=== PATIENT | female | born 1965 | race Caucasian/White ===

== ENCOUNTER → 2017-11-24 | Outpatient (CLI) | payer OTHER ==
[2017-11-24 12:14] LABS: BASO # 0.1 10^3/uL (0.0-0.2); EOS # 0.1 10^3/uL (0.0-0.50); EOS % 1.4 % (0.0-3.0); HEMATOCRIT 41.2 % (36.0-47.0); HEMOGLOBIN 13.4 g/dl (12.0-15.5); IMMATURE GRANULOCYTE % 0.3 % (0-3.0); LYMPH # 2.1 10^3/uL (1.5-4.5); LYMPH % 27.2 % (24.0-44.0); MEAN CORPUSCULAR HEMOGLOBIN 30.1 pg (27.0-33.0); MEAN CORPUSCULAR HGB CONC 32.5 g/dl (32.0-36.5); MEAN CORPUSCULAR VOLUME 92.6 fl (80.0-96.0); MONO # 0.4 10^3/uL (0.0-0.8); MONO % 5.5 % (0.0-5.0); NEUTROPHILS % 64.6 % (36.0-66.0); PLATELET COUNT, AUTOMATED 210 10^3/uL (150-450); RED BLOOD COUNT 4.45 10^6/uL (4.00-5.40); RED CELL DISTRIBUTION WIDTH 14.7 % (11.5-14.5); WHITE BLOOD COUNT 7.8 10^3/uL (4.0-10.0)
[2017-11-24 12:29] LABS: ALBUMIN 3.6 GM/DL (3.2-5.2); ALBUMIN/GLOBULIN RATIO 1.24 (1.00-1.93); ALKALINE PHOSPHATASE 114 U/L (45-117); ALT/SGPT 43 U/L (12-78); ANION GAP 5 MEQ/L (8-16); AST/SGOT 19 U/L (7-37); BILIRUBIN,TOTAL 0.8 MG/DL (0.2-1.0); BLOOD UREA NITROGEN 17 MG/DL (7-18); CALCIUM LEVEL 8.9 MG/DL (8.5-10.1); CARBON DIOXIDE LEVEL 29 MEQ/L (21-32); CHLORIDE LEVEL 108 MEQ/L (98-107); CHOLESTEROL LEVEL 152 MG/DL (<200); CREATININE FOR GFR 0.94 MG/DL (0.55-1.30); GLOMERULAR FILTRATION RATE > 60.0 (>51); GLUCOSE, FASTING 120 MG/DL (70-100); HDL CHOLESTEROL 51 MG/DL (>40); LDL CHOLESTEROL 63.8 MG/DL (<100); MAGNESIUM LEVEL 2.1 MG/DL (1.8-2.4); NON-HDL-C 101 MG/DL; POTASSIUM SERUM 4.2 MEQ/L (3.5-5.1); SODIUM LEVEL 142 MEQ/L (136-145); TOTAL PROTEIN 6.5 GM/DL (6.4-8.2); TRIGLYCERIDES LEVEL 186 MG/DL (<150)
[2017-11-24 13:26] LABS: MALB URINE SIEMENS 7.7 MG/L; MAU/CREAT RATIO 5.1 MCG/MG (0.0-30.0)
[2017-11-24 16:44] LABS: FOLATE > 24.0 NG/ML; VITAMIN B12 LEVEL 692 PG/ML
[2017-11-24 16:48] LABS: TOTAL 25(OH) VITAMIN D 28.9 NG/ML (30.0-100.0)
[2017-11-29 00:06] LABS: VITAMIN B1 LEVEL WHOLE BLOOD 163.2 nmol/L (66.5-200.0)
== END ==
LOC: M LAB 11:10
DX: E11.40 Type 2 diabetes mellitus with diabetic neuropathy, unspecified (principal)

== ENCOUNTER → 2017-12-19 | Outpatient (CLI) | payer OTHER | LOC: M RAD 09:57 | DX: M25.511 Pain in right shoulder (principal) ==

== ENCOUNTER → 2017-12-19 | Outpatient (CLI) | payer OTHER | LOC: M RAD 10:03 | DX: M50.322 Other cervical disc degeneration at C5-C6 level (principal); M25.511 Pain in right shoulder | CPT/HCPCS: 72141 ==

== ENCOUNTER → 2018-02-25 | Outpatient (CLI) | payer OTHER | LOC: M CARPUL 11:20 | DX: R60.9 Edema, unspecified (principal); I50.30 Unspecified diastolic (congestive) heart failure | CPT/HCPCS: 93306 ==

== ENCOUNTER 2018-03-19 07:03 | Inpatient (IN) | payer OTHER ==
[~2018-03-19 07:03] MED LIST: LIDOCAINE 1% MDV 20ML VIAL SQ
[2018-03-19] MEDS ORDERED: LIDOCAINE 1% MDV 20ML VIAL (07:04)
[2018-03-19] MEDS ORDERED: ROPIvacaine 0.5% 30 ML INJECTION (J2795 PER 1MG) (07:04)
[2018-03-19 07:55] LABS: BEDSIDE GLUCOSE 104 MG/DL (70-105)
[2018-03-19] MEDS: LR 1,000 ML IV ×3 (07:55→12:45)
[2018-03-19] MEDS ORDERED: MIDAZOLAM INJ 2 MG/2 ML VIAL (J2250) As Ordered (08:23)
[2018-03-19] MEDS ORDERED: fentaNYL 100 MCG/2 ML INJECTION (J3010) As Ordered (08:23)
[2018-03-19] MEDS: fentaNYL 100 MCG/2 ML INJECTION (J3010) IV ×2 (08:38→08:41)
[2018-03-19] MEDS: MIDAZOLAM INJ 2 MG/2 ML VIAL (J2250) IV ×2 (08:38→08:41)
[2018-03-19] MEDS: VANCOMYCIN HCL 1,000 MG, VIAL MATE ADAPTER 1 EACH in D5W 250 ML IV (08:50)
[2018-03-19] MEDS ORDERED: VANCOMYCIN 1000 MG/20 ML VIAL (J3370) As Ordered (08:52)
[2018-03-19] MEDS: FAMOTIDINE 20 MG TAB PO ×2 (09:00→20:02)
[2018-03-19] MEDS: buPROPion (WELLBUTRIN SR) 100 MG SR TAB PO ×2 (09:00→20:02)
[2018-03-19] MEDS ORDERED: LIDOCAINE 1% MDV 20ML VIAL As Ordered (09:07)
[2018-03-19] MEDS: EPINEPHrine 1MG/ML INJ 30ML MD-VIAL As Ordered (10:48)
[2018-03-19 12:39] LABS: BEDSIDE GLUCOSE 211 MG/DL (70-105)
[2018-03-19] MEDS ORDERED: PERCOCET 5MG/325MG TAB PO (12:45)
[2018-03-19] MEDS ORDERED: ONDANSETRON 4MG/2ML VIAL (J2405) IV (12:45)
[2018-03-19] MEDS ORDERED: METOCLOPRAMIDE INJ 10MG/2ML VIAL (J2765) IV (12:45)
[2018-03-19] MEDS ORDERED: fentaNYL 100 MCG/2 ML INJECTION (J3010) IV (12:45)
[2018-03-19] MEDS ORDERED: MORPHINE 4 MG/ML 1ML VIAL/SYRINGE (J2270) IV (13:00)
[2018-03-19 14:30] LABS: HEMATOCRIT 35.8 % (36.0-47.0); HEMOGLOBIN 11.4 g/dl (12.0-15.5); MEAN CORPUSCULAR HEMOGLOBIN 30.6 pg (27.0-33.0); MEAN CORPUSCULAR HGB CONC 31.8 g/dl (32.0-36.5); MEAN CORPUSCULAR VOLUME 96.2 fl (80.0-96.0); PLATELET COUNT, AUTOMATED 180 10^3/uL (150-450); RED BLOOD COUNT 3.72 10^6/uL (4.00-5.40); RED CELL DISTRIBUTION WIDTH 13.7 % (11.5-14.5); WHITE BLOOD COUNT 6.1 10^3/uL (4.0-10.0)
[2018-03-19] MEDS ORDERED: GLUCAGON FOR INJ 1 MG VIAL (J1610) SC (14:30)
[2018-03-19] MEDS ORDERED: GLUCOSE 4 GM CHEW TABLET PO (14:30)
[2018-03-19] MEDS ORDERED: DEXTROSE 50% 50 ML SYRINGE IV (14:30)
[2018-03-19 15:00] LABS: ALBUMIN 3.1 GM/DL (3.2-5.2); ALBUMIN/GLOBULIN RATIO 1.11 (1.00-1.93); ALKALINE PHOSPHATASE 84 U/L (45-117); ALT/SGPT 31 U/L (12-78); ANION GAP 9 MEQ/L (8-16); AST/SGOT 15 U/L (7-37); BILIRUBIN,TOTAL 0.3 MG/DL (0.2-1.0); BLOOD UREA NITROGEN 21 MG/DL (7-18); CALCIUM LEVEL 8.3 MG/DL (8.5-10.1); CARBON DIOXIDE LEVEL 27 MEQ/L (21-32); CHLORIDE LEVEL 108 MEQ/L (98-107); CREATININE FOR GFR 1.36 MG/DL (0.55-1.30); GLOMERULAR FILTRATION RATE 43.1 (>51); GLUCOSE, FASTING 211 MG/DL (70-100); POTASSIUM SERUM 4.1 MEQ/L (3.5-5.1); SODIUM LEVEL 144 MEQ/L (136-145); TOTAL PROTEIN 5.9 GM/DL (6.4-8.2)
[2018-03-19] MEDS: ATORVASTATIN 10 MG TAB PO (15:32)
[2018-03-19] MEDS: CYANOCOBALAMIN 500 MCG TAB PO (15:32)
[2018-03-19] MEDS: ACETAMINOPHEN 500 MG TAB PO ×2 (15:32→21:10)
[2018-03-19] MEDS: CALCITRIOL 0.25 MCG CAP (S0169) PO (15:32)
[2018-03-19] MEDS: ALLOPURINOL 100 MG TAB PO (15:32)
[2018-03-19 16:34] LABS: BEDSIDE GLUCOSE 211 MG/DL (70-105)
[2018-03-19 17:18] LABS: HEMATOCRIT 35.7 % (36.0-47.0); HEMOGLOBIN 11.5 g/dl (12.0-15.5); MEAN CORPUSCULAR HEMOGLOBIN 30.7 pg (27.0-33.0); MEAN CORPUSCULAR HGB CONC 32.2 g/dl (32.0-36.5); MEAN CORPUSCULAR VOLUME 95.5 fl (80.0-96.0); PLATELET COUNT, AUTOMATED 198 10^3/uL (150-450); RED BLOOD COUNT 3.74 10^6/uL (4.00-5.40); RED CELL DISTRIBUTION WIDTH 13.7 % (11.5-14.5); WHITE BLOOD COUNT 8.3 10^3/uL (4.0-10.0)
[2018-03-19 17:45] LABS: ANION GAP 11 MEQ/L (8-16); BLOOD UREA NITROGEN 20 MG/DL (7-18); CALCIUM LEVEL 8.1 MG/DL (8.5-10.1); CARBON DIOXIDE LEVEL 25 MEQ/L (21-32); CHLORIDE LEVEL 109 MEQ/L (98-107); CREATININE FOR GFR 1.25 MG/DL (0.55-1.30); GLOMERULAR FILTRATION RATE 47.5 (>51); GLUCOSE, FASTING 206 MG/DL (70-100); POTASSIUM SERUM 4.1 MEQ/L (3.5-5.1); SODIUM LEVEL 145 MEQ/L (136-145)
[2018-03-19] MEDS: HumaLOG INSULIN (NovoLOG) PER UNIT SC (17:55)
[2018-03-19] MEDS: oxyCODONE 5MG TAB PO ×2 (20:04→23:36)
[2018-03-19 21:11] LABS: BEDSIDE GLUCOSE 193 MG/DL (70-105)
[2018-03-20] MEDS: oxyCODONE 5MG TAB PO ×5 (03:01→22:02)
[2018-03-20] MEDS: ACETAMINOPHEN 500 MG TAB PO ×3 (05:30→22:03)
[2018-03-20 06:15] LABS: HEMATOCRIT 32.8 % (36.0-47.0); HEMOGLOBIN 10.5 g/dl (12.0-15.5); MEAN CORPUSCULAR HEMOGLOBIN 30.4 pg (27.0-33.0); MEAN CORPUSCULAR VOLUME 95.1 fl (80.0-96.0); PLATELET COUNT, AUTOMATED 190 10^3/uL (150-450); RED BLOOD COUNT 3.45 10^6/uL (4.00-5.40); RED CELL DISTRIBUTION WIDTH 13.8 % (11.5-14.5); WHITE BLOOD COUNT 8.5 10^3/uL (4.0-10.0)
[2018-03-20 06:42] LABS: ANION GAP 9 MEQ/L (8-16); BLOOD UREA NITROGEN 22 MG/DL (7-18); CALCIUM LEVEL 8.2 MG/DL (8.5-10.1); CARBON DIOXIDE LEVEL 26 MEQ/L (21-32); CHLORIDE LEVEL 108 MEQ/L (98-107); CREATININE FOR GFR 1.41 MG/DL (0.55-1.30); GLOMERULAR FILTRATION RATE 41.4 (>51); GLUCOSE, FASTING 175 MG/DL (70-100); POTASSIUM SERUM 4.2 MEQ/L (3.5-5.1); SODIUM LEVEL 143 MEQ/L (136-145)
[2018-03-20] MEDS: HumaLOG INSULIN (NovoLOG) PER UNIT SC ×3 (07:55→18:25)
[2018-03-20] MEDS: FAMOTIDINE 20 MG TAB PO ×2 (08:00→22:01)
[2018-03-20] MEDS: CALCITRIOL 0.25 MCG CAP (S0169) PO (08:00)
[2018-03-20] MEDS: buPROPion (WELLBUTRIN SR) 100 MG SR TAB PO ×2 (08:00→22:03)
[2018-03-20] MEDS: METOPROLOL SUCC (TopROL XL) 100MG *XL* TAB PO (08:04)
[2018-03-20] MEDS: CYANOCOBALAMIN 500 MCG TAB PO (08:05)
[2018-03-20] MEDS: ALLOPURINOL 100 MG TAB PO (08:05)
[2018-03-20] MEDS: ATORVASTATIN 10 MG TAB PO (08:05)
[2018-03-20] MEDS: MIRALAX *UNIT DOSE* 17GM PACKET PO (09:33)
[2018-03-20] MEDS: MOM 30ML SUSPENSION UDC PO (09:33)
[2018-03-20] MEDS: HEPARIN SOD (PORCINE) 5000 UNITS/ML VIAL SQ ×3 (09:38→22:00)
[2018-03-20 11:46] LABS: BEDSIDE GLUCOSE 188 MG/DL (70-105)
[2018-03-20 16:28] LABS: BEDSIDE GLUCOSE 172 MG/DL (70-105)
[2018-03-20 20:32] LABS: BEDSIDE GLUCOSE 172 MG/DL (70-105)
[2018-03-20] MEDS: MAGNESIUM OXIDE 400 MG TAB (MAG-OX) PO (22:03)
[2018-03-20] MEDS: POTASSIUM CHLORIDE 10 MEQ SR TABLET PO (22:03)
[2018-03-21] MEDS: oxyCODONE 5MG TAB PO ×5 (03:34→20:40)
[2018-03-21] MEDS: ACETAMINOPHEN 500 MG TAB PO ×3 (05:21→20:39)
[2018-03-21] MEDS: HEPARIN SOD (PORCINE) 5000 UNITS/ML VIAL SQ ×3 (05:22→21:47)
[2018-03-21 07:42] LABS: BEDSIDE GLUCOSE 164 MG/DL (70-105)
[2018-03-21] MEDS: HumaLOG INSULIN (NovoLOG) PER UNIT SC ×3 (08:11→16:35)
[2018-03-21] MEDS: CALCITRIOL 0.25 MCG CAP (S0169) PO (08:11)
[2018-03-21] MEDS: MAGNESIUM OXIDE 400 MG TAB (MAG-OX) PO (08:12)
[2018-03-21] MEDS: ALLOPURINOL 100 MG TAB PO (08:12)
[2018-03-21] MEDS: FUROSEMIDE 40 MG TAB PO (08:12)
[2018-03-21] MEDS: buPROPion (WELLBUTRIN SR) 100 MG SR TAB PO ×2 (08:12→20:40)
[2018-03-21] MEDS: MOM 30ML SUSPENSION UDC PO (08:13)
[2018-03-21] MEDS: CYANOCOBALAMIN 500 MCG TAB PO (08:13)
[2018-03-21] MEDS: ATORVASTATIN 10 MG TAB PO (08:13)
[2018-03-21] MEDS: POTASSIUM CHLORIDE 10 MEQ SR TABLET PO (08:13)
[2018-03-21] MEDS: FAMOTIDINE 20 MG TAB PO ×2 (08:13→20:39)
[2018-03-21] MEDS: MIRALAX *UNIT DOSE* 17GM PACKET PO (08:13)
[2018-03-21] MEDS: METOPROLOL SUCC (TopROL XL) 100MG *XL* TAB PO (08:36)
[2018-03-21] MEDS: METOPROLOL SUCC (TopROL XL) 50MG **XL** TAB PO (10:01)
[2018-03-21 11:26] LABS: BEDSIDE GLUCOSE 140 MG/DL (70-105)
[2018-03-21 16:24] LABS: BEDSIDE GLUCOSE 135 MG/DL (70-105)
[2018-03-21 20:29] LABS: BEDSIDE GLUCOSE 145 MG/DL (70-105)
[2018-03-22] MEDS: oxyCODONE 5MG TAB PO ×5 (00:39→21:05)
[2018-03-22] MEDS: HEPARIN SOD (PORCINE) 5000 UNITS/ML VIAL SQ ×3 (06:00→21:07)
[2018-03-22] MEDS: ACETAMINOPHEN 500 MG TAB PO ×3 (06:24→21:06)
[2018-03-22 07:11] LABS: BEDSIDE GLUCOSE 184 MG/DL (70-105)
[2018-03-22] MEDS: MOM 30ML SUSPENSION UDC PO (08:11)
[2018-03-22] MEDS: HumaLOG INSULIN (NovoLOG) PER UNIT SC ×3 (08:11→18:18)
[2018-03-22] MEDS: buPROPion (WELLBUTRIN SR) 100 MG SR TAB PO ×2 (08:11→21:04)
[2018-03-22] MEDS: MIRALAX *UNIT DOSE* 17GM PACKET PO (08:11)
[2018-03-22] MEDS: METOPROLOL SUCC (TopROL XL) 100MG *XL* TAB PO (08:12)
[2018-03-22] MEDS: CALCITRIOL 0.25 MCG CAP (S0169) PO (08:12)
[2018-03-22] MEDS: POTASSIUM CHLORIDE 10 MEQ SR TABLET PO (08:13)
[2018-03-22] MEDS: ATORVASTATIN 10 MG TAB PO (08:13)
[2018-03-22] MEDS: CYANOCOBALAMIN 500 MCG TAB PO (08:13)
[2018-03-22] MEDS: FAMOTIDINE 20 MG TAB PO ×2 (08:13→21:06)
[2018-03-22] MEDS: FUROSEMIDE 40 MG TAB PO (08:13)
[2018-03-22] MEDS: MAGNESIUM OXIDE 400 MG TAB (MAG-OX) PO (08:14)
[2018-03-22] MEDS: ALLOPURINOL 100 MG TAB PO (08:14)
[2018-03-22 12:07] LABS: BEDSIDE GLUCOSE 120 MG/DL (70-105)
[2018-03-22 16:58] LABS: BEDSIDE GLUCOSE 133 MG/DL (70-105)
[2018-03-22 21:19] LABS: BEDSIDE GLUCOSE 153 MG/DL (70-105)
[2018-03-23] MEDS: oxyCODONE 5MG TAB PO ×5 (00:50→20:22)
[2018-03-23] MEDS: HEPARIN SOD (PORCINE) 5000 UNITS/ML VIAL SQ ×3 (05:13→22:00)
[2018-03-23] MEDS: MAGNESIUM CITRATE 300 ML BTL PO ×2 (06:32→11:00)
[2018-03-23] MEDS: ACETAMINOPHEN 500 MG TAB PO ×3 (06:32→22:00)
[2018-03-23] MEDS: HumaLOG INSULIN (NovoLOG) PER UNIT SC ×3 (08:43→17:48)
[2018-03-23 08:59] LABS: BEDSIDE GLUCOSE 151 MG/DL (70-105)
[2018-03-23] MEDS: METOPROLOL SUCC (TopROL XL) 100MG *XL* TAB PO (09:00)
[2018-03-23] MEDS: ATORVASTATIN 10 MG TAB PO (09:53)
[2018-03-23] MEDS: POTASSIUM CHLORIDE 10 MEQ SR TABLET PO (09:53)
[2018-03-23] MEDS: CYANOCOBALAMIN 500 MCG TAB PO (09:54)
[2018-03-23] MEDS: FAMOTIDINE 20 MG TAB PO ×2 (09:54→20:22)
[2018-03-23] MEDS: ALLOPURINOL 100 MG TAB PO (09:54)
[2018-03-23] MEDS: buPROPion (WELLBUTRIN SR) 100 MG SR TAB PO ×2 (09:54→20:23)
[2018-03-23] MEDS: MAGNESIUM OXIDE 400 MG TAB (MAG-OX) PO (09:55)
[2018-03-23] MEDS: FUROSEMIDE 40 MG TAB PO (09:55)
[2018-03-23] MEDS: MIRALAX *UNIT DOSE* 17GM PACKET PO (09:55)
[2018-03-23] MEDS: MOM 30ML SUSPENSION UDC PO (09:55)
[2018-03-23] MEDS: CALCITRIOL 0.25 MCG CAP (S0169) PO (09:55)
[2018-03-23 11:20] LABS: BEDSIDE GLUCOSE 129 MG/DL (70-105)
[2018-03-23 17:24] LABS: BEDSIDE GLUCOSE 142 MG/DL (70-105)
[2018-03-23 19:49] LABS: BEDSIDE GLUCOSE 192 MG/DL (70-105)
[2018-03-24] MEDS: oxyCODONE 5MG TAB PO ×2 (03:59→08:13)
[2018-03-24] MEDS: ACETAMINOPHEN 500 MG TAB PO (05:32)
[2018-03-24] MEDS: HEPARIN SOD (PORCINE) 5000 UNITS/ML VIAL SQ (06:00)
[2018-03-24] MEDS: buPROPion (WELLBUTRIN SR) 100 MG SR TAB PO (08:13)
[2018-03-24] MEDS: FAMOTIDINE 20 MG TAB PO (08:13)
[2018-03-24] MEDS: CALCITRIOL 0.25 MCG CAP (S0169) PO (08:13)
[2018-03-24] MEDS: POTASSIUM CHLORIDE 10 MEQ SR TABLET PO (08:13)
[2018-03-24] MEDS: FUROSEMIDE 40 MG TAB PO (08:13)
[2018-03-24 08:14] LABS: BEDSIDE GLUCOSE 157 MG/DL (70-105)
[2018-03-24] MEDS: METOPROLOL SUCC (TopROL XL) 100MG *XL* TAB PO (08:14)
[2018-03-24] MEDS: ATORVASTATIN 10 MG TAB PO (08:14)
[2018-03-24] MEDS: CYANOCOBALAMIN 500 MCG TAB PO (08:14)
[2018-03-24] MEDS: ALLOPURINOL 100 MG TAB PO (08:14)
[2018-03-24] MEDS: MAGNESIUM OXIDE 400 MG TAB (MAG-OX) PO (08:14)
[2018-03-24] MEDS: HumaLOG INSULIN (NovoLOG) PER UNIT SC (08:20)
[2018-03-24] MEDS: MIRALAX *UNIT DOSE* 17GM PACKET PO (08:20)
[2018-03-24] MEDS: MOM 30ML SUSPENSION UDC PO (08:20)
== END 2018-03-24 10:15 | DRG 516 ==
LOC: M SDC 07:03 → M MS5PR 03-20 08:21
PROVIDERS: Orthopaedic Surgery
PROC: 0PB94ZZ Excision of Right Clavicle, Percutaneous Endoscopic Approach (ICD-10-PCS; principal; 2018-03-19 09:25)
PROC: 0XQ Anatomical Regions, Upper Extremities, Repair (ICD-10-PCS; 2018-03-19 09:25)
PROC: 0PN Upper Bones, Release (ICD-10-PCS; 2018-03-19 09:25)
DX: M75.111 Incomplete rotator cuff tear or rupture of right shoulder, not specified as traumatic (principal); Z68.42 Body mass index [BMI] 45.0-49.9, adult; M75.21 Bicipital tendinitis, right shoulder; M19.011 Primary osteoarthritis, right shoulder; M25.811 Other specified joint disorders, right shoulder; F32.9 Major depressive disorder, single episode, unspecified; E78.5 Hyperlipidemia, unspecified; G47.33 Obstructive sleep apnea (adult) (pediatric); E66.01 Morbid (severe) obesity due to excess calories; I15.0 Renovascular hypertension; D63.1 Anemia in chronic kidney disease; E11.22 Type 2 diabetes mellitus with diabetic chronic kidney disease; N18.3 Chronic kidney disease, stage 3 (moderate); M1A.30X0 Chronic gout due to renal impairment, unspecified site, without tophus (tophi); Z98.84 Bariatric surgery status; Z88.1 Allergy status to other antibiotic agents; Z88.5 Allergy status to narcotic agent; Z79.899 Other long term (current) drug therapy; Z79.4 Long term (current) use of insulin

== ENCOUNTER → 2018-04-27 | Outpatient (REF) | payer OTHER ==
[~2018-04-27] MED LIST changes: +ACET-683 PO; +ATOR1TAB19 PO; +BUPR1TAB56 PO; +FAMO1TAB11 PO; +FURO40TA2 PO; -LIDOCAINE 1% MDV 20ML VIAL SQ; +METO1TAB33 PO; +PERC5TAB12 PO; +POTA10CA32 PO; +ROXI1TAB2 PO; +TAB-TAB PO; +VITA50005 PO; +VITA500T3 PO
[2018-04-27 17:35] LABS: CALCIUM LEVEL 8.7 MG/DL (8.5-10.1); CREATININE FOR GFR 1.19 MG/DL (0.55-1.30); GLOMERULAR FILTRATION RATE 50.1 (>51); POTASSIUM SERUM 3.8 MEQ/L (3.5-5.1)
== END ==
LOC: M LAB REF 16:27
PROVIDERS: ATTEND Family Medicine
DX: E11.40 Type 2 diabetes mellitus with diabetic neuropathy, unspecified (principal); N28.9 Disorder of kidney and ureter, unspecified; I87.392 Chronic venous hypertension (idiopathic) with other complications of left lower extremity

== ENCOUNTER → 2018-11-01 | Outpatient (CLI) | payer OTHER ==
[~2018-11-01] MED LIST changes: +CYAN500T8 PO; -VITA500T3 PO
== END ==
LOC: M RAD 08:29
PROVIDERS: ATTEND Orthopaedic Surgery
DX: Z53.9 Procedure and treatment not carried out, unspecified reason (principal); M72.0 Palmar fascial fibromatosis [Dupuytren]

== ENCOUNTER 2018-11-21 11:53 | Emergency (ER) | payer OTHER ==
[~2018-11-21] VITALS: Ht 175.3 cm; Wt 136.4 kg
[2018-11-21 11:53] VITALS: BP 121/81
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
== END 2018-11-21 15:59 | disposition home or self-care (01) ==
LOC: M ED 11:53
DX: S83.91XA Sprain of unspecified site of right knee, initial encounter (principal); M17.10 Unilateral primary osteoarthritis, unspecified knee; W19.XXXA Unspecified fall, initial encounter; Y92.9 Unspecified place or not applicable; Y93.9 Activity, unspecified; Y99.9 Unspecified external cause status; E11.9 Type 2 diabetes mellitus without complications; I10 Essential (primary) hypertension; N18.9 Chronic kidney disease, unspecified; G47.30 Sleep apnea, unspecified; Z98.84 Bariatric surgery status; G90.09 Other idiopathic peripheral autonomic neuropathy; Z79.899 Other long term (current) drug therapy; Z88.1 Allergy status to other antibiotic agents; Z88.8 Allergy status to other drugs, medicaments and biological substances

== ENCOUNTER → 2018-12-04 | Outpatient (CLI) | payer OTHER ==
[~2018-12-04] MED LIST changes: +ALLO100T PO; +LISI-542 PO; +TRUL10IN SQ; +TYLETAB14 PO
--- NOTE | 2018-12-06 10:53 | REP ---
MRI RIGHT KNEE: TECHNIQUE: Axial proton density fat saturation, sagittal proton density T2 STIR, water excitation, coronal proton density, proton density fat saturation. The study is limited due to patient motion and body habitus. There is a complex tear of the anterior horn of the lateral meniscus with a small oblique tear also noted at the posterior horn of the lateral meniscus. There are somewhat complex tears of the anterior and posterior horns of the medial meniscus. The cruciate and collateral ligaments are intact. Extensor mechanism is intact. There is moderate diffuse chondromalacia involving all three joint compartments with moderate diffuse spurring. There is mild subchondral marrow edema in the medial femoral condyle and tibial plateau. There is mild subchondral marrow edema in the lateral patellar facet. There is moderate joint effusion. There is no popliteal cyst. Medial and lateral patellar retinacula are intact. IMPRESSION: There are tears of the anterior and posterior horns of both the medial and lateral menisci. The cruciate and collateral ligaments are intact. Moderate global chondromalacia and diffuse spurring. Mild subchondral marrow edema and lateral patellar facet, medial femoral condyle and tibial plateau. Moderate joint effusion. Electronically Signed by Parviz Dhaliwal MD 12/07/2018 11:29 P
== END ==
LOC: M RAD 11:56
PROVIDERS: ATTEND Physician Assistant Medical
DX: S83.241A Other tear of medial meniscus, current injury, right knee, initial encounter (principal); M25.461 Effusion, right knee; M25.761 Osteophyte, right knee; X58.XXXA Exposure to other specified factors, initial encounter; Y92.89 Other specified places as the place of occurrence of the external cause

== ENCOUNTER 2018-12-09 09:54 | Emergency (ER) | payer OTHER ==
[~2018-12-09] VITALS: Ht 175.3 cm; Wt 136.4 kg
[~2018-12-09 09:54] MED LIST changes: -ALLO100T PO; -LISI-542 PO; -TRUL10IN SQ; -TYLETAB14 PO
[2018-12-09] MEDS ORDERED: ALLO100T PO (10:18)
[2018-12-09] MEDS ORDERED: TRUL10IN SQ (10:18)
[2018-12-09] MEDS ORDERED: LISI-542 PO (10:18)
[2018-12-09] MEDS ORDERED: ACETAMINOPHEN 325 MG TAB PO ONE (10:45)
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
--- NOTE | 2018-12-09 11:37 | REP ---
Right foot four views : There is no fracture or dislocation. Mineralization and joint spaces are normal. There are no calcifications or foreign bodies. Impression: Negative right foot . Electronically Signed by Parviz Gillespie MD 12/09/2018 11:28 A
[2018-12-09] MEDS ORDERED: TYLETAB14 PO (12:24)
[2018-12-09 12:26] VITALS: BP 151/79
== END 2018-12-09 12:39 | disposition home or self-care (01) ==
LOC: EDBD 09:54 → M ED 09:54
DX: S16.1XXA Strain of muscle, fascia and tendon at neck level, initial encounter (principal); V49.40XA Driver injured in collision with unspecified motor vehicles in traffic accident, initial encounter; Z88.1 Allergy status to other antibiotic agents; Z88.5 Allergy status to narcotic agent

== ENCOUNTER → 2019-01-03 | Outpatient (CLI) | payer OTHER ==
[~2019-01-03] MED LIST changes: +ALLO100T PO; +LISI-542 PO; +TRUL10IN SQ; +TYLETAB14 PO
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
== END ==
LOC: M WUC 16:57
PROVIDERS: ATTEND Physician Assistant
DX: M79.675 Pain in left toe(s) (principal)

== ENCOUNTER → 2020-12-26 | Outpatient (CLI) | payer OTHER ==
[~2020-12-26] MED LIST changes: +CYAN500T14 PO; -CYAN500T8 PO; -LISI-542 PO; +LISI-898 PO; -TAB-TAB PO; +TAB-TAB2 PO
[2020-12-26 11:02] LABS: CREATININE FOR GFR 1.27 MG/DL (0.55-1.30); GLOMERULAR FILTRATION RATE 46.2 (>51)
== END ==
LOC: M LAB 09:50
PROVIDERS: ATTEND Orthopaedic Surgery
DX: G56.03 Carpal tunnel syndrome, bilateral upper limbs (principal); M47.892 Other spondylosis, cervical region

== ENCOUNTER → 2021-01-10 | Outpatient (REF) | payer OTHER | LOC: M LAB REF 17:24 | PROVIDERS: ATTEND Internal Medicine Nephrology | DX: E83.42 Hypomagnesemia (principal) ==

== ENCOUNTER → 2021-04-09 | Outpatient (CLI) | payer OTHER ==
[~2021-04-09] MED LIST changes: -LISI-898 PO; +LISI5TAB11 PO
== END ==
LOC: M WUC 13:54
PROVIDERS: ATTEND Nurse Practitioner Family
DX: M54.50 Low back pain, unspecified (principal)

== ENCOUNTER 2021-10-09 06:01 | Emergency (ER) | payer OTHER ==
[~2021-10-09] VITALS: Ht 175.3 cm; Wt 145.6 kg
[2021-10-09] MEDS ORDERED: ONDANSETRON 4MG 2ML VIAL IV ONE (11:25)
[2021-10-09] MEDS ORDERED: MORPHINE 4 MG/ML 1ML VIAL/SYRINGE IV ONE (11:25)
[2021-10-09] MEDS ORDERED: PANTOPRAZOLE 40MG VIAL IV ONE (11:25)
[2021-10-09] MEDS ORDERED: NS 1,000 ML IV ONE ×2 (11:25→19:05)
[2021-10-09 11:51] LABS: BASO % 0.3 % (0.0-1.0); EOS % 0.1 % (0.0-3.0); HEMATOCRIT 44.9 % (36.0-47.0); HEMOGLOBIN 14.6 g/dl (12.0-15.5); LYMPH # 0.3 10^3/uL (1.5-5.0); LYMPH % 2.4 % (24.0-44.0); MEAN CORPUSCULAR HEMOGLOBIN 29.1 pg (27.0-33.0); MEAN CORPUSCULAR HGB CONC 32.5 g/dl (32.0-36.5); MEAN CORPUSCULAR VOLUME 89.6 fl (80.0-96.0); MONO # 0.5 10^3/uL (0.0-0.8); MONO % 3.9 % (2.0-8.0); NEUTROPHILS % 92.9 % (36.0-66.0); PLATELET COUNT, AUTOMATED 165 10^3/uL (150-450); RED BLOOD COUNT 5.01 10^6/uL (4.00-5.40); WHITE BLOOD COUNT 12.9 10^3/uL (4.0-10.0)
[2021-10-09 12:24] LABS: CK-MB VALUE MASS 1.2 NG/ML (<3.6); MB/CK RELATIVE INDEX 1.82 (< OR =4)
[2021-10-09 12:35] LABS: BILIRUBIN,DIRECT 1.7 MG/DL (0.0-0.2); BILIRUBIN,TOTAL 2.7 MG/DL (0.2-1.0)
[2021-10-09] MEDS: GASTROGRAFIN SOLUTION 30ML PO SCH ×2 (13:14→13:43)
[2021-10-09] MEDS ORDERED: METOCLOPRAMIDE INJ 10MG/2ML VIAL (J2765 PER 1) IV ONE (14:00)
[2021-10-09] MEDS ORDERED: ISOVUE-370 76% 100ML VIAL As Ordered ONE (14:12)
[2021-10-09] MEDS ORDERED: MORPHINE 2 MG/ML 1ML VIAL IV ONE (16:25)
[2021-10-09] MEDS ORDERED: CIPROFLOXACIN 400 MG in IV 1 EA IV ONE (20:15)
[2021-10-09] MEDS ORDERED: metroNIDAZOLE 500 MG in IV 1 EA IV ONE (20:15)
[2021-10-09 21:32] VITALS: BP 128/77
== END 2021-10-09 21:34 | disposition short-term general hospital (02) ==
LOC: M ED 06:01
DX: K81.9 Cholecystitis, unspecified (principal); K85.90 Acute pancreatitis without necrosis or infection, unspecified; R74.01 Elevation of levels of liver transaminase levels; E80.6 Other disorders of bilirubin metabolism; N18.30 Chronic kidney disease, stage 3 unspecified; E11.9 Type 2 diabetes mellitus without complications; Z88.1 Allergy status to other antibiotic agents; Z88.8 Allergy status to other drugs, medicaments and biological substances; Z98.84 Bariatric surgery status
CPT/HCPCS: 74177; 76705; 80047; 80076; 82550; 82553; 83605; 83690; 84484; 85025; 87426; 93005; 96361; 96365; 96375; 96376; 99284; C9113; J0744; J2270; J2405; J2765; Q9963; Q9967

== ENCOUNTER 2022-03-21 17:41 | Emergency (ER) | payer OTHER ==
[~2022-03-21] VITALS: Ht 175.3 cm; Wt 145.4 kg
[2022-03-21] MEDS ORDERED: LIDOCAINE 5% (LIDODERM) PATCH TD ONE (21:55)
[2022-03-21] MEDS ORDERED: traMADol 50 MG TAB PO ONE (21:55)
[2022-03-21] MEDS ORDERED: TRAM50TA2 PO (22:00)
[2022-03-21] MEDS ORDERED: LIDO5DIS41 TD (22:00)
[2022-03-21 22:27] VITALS: BP 172/87
[2022-03-22] MEDS ORDERED: TRAM-533 PO (09:41)
[2022-03-22] MEDS ORDERED: LIDO5DIS41 TD (09:41)
== END 2022-03-21 22:29 | disposition home or self-care (01) ==
LOC: M ED 17:41
DX: S06.0X0A Concussion without loss of consciousness, initial encounter (principal); S00.03XA Contusion of scalp, initial encounter; M25.561 Pain in right knee; W10.9XXA Fall (on) (from) unspecified stairs and steps, initial encounter; Y92.009 Unspecified place in unspecified non-institutional (private) residence as the place of occurrence of the external cause; M25.78 Osteophyte, vertebrae; E11.9 Type 2 diabetes mellitus without complications; K21.9 Gastro-esophageal reflux disease without esophagitis; I10 Essential (primary) hypertension; E78.5 Hyperlipidemia, unspecified; F32.A Depression, unspecified; Z79.899 Other long term (current) drug therapy

== ENCOUNTER → 2023-11-30 | Outpatient (CLI) | payer OTHER ==
[~2023-11-30] MED LIST changes: +LIDO5DIS41 TD; -POTA10CA32 PO; +POTA10CA70 PO; +TRAM-533 PO; +TRAM50TA2 PO
== END ==
LOC: M RAD 13:46
PROVIDERS: ATTEND Physician Assistant Medical
DX: S92.532A Displaced fracture of distal phalanx of left lesser toe(s), initial encounter for closed fracture (principal); W18.30XA Fall on same level, unspecified, initial encounter; Y92.009 Unspecified place in unspecified non-institutional (private) residence as the place of occurrence of the external cause

== ENCOUNTER → 2024-05-11 | Outpatient (CLI) | payer OTHER | LOC: M PLAIMG 08:58 | PROVIDERS: ATTEND Orthopaedic Surgery | DX: S43.432A Superior glenoid labrum lesion of left shoulder, initial encounter (principal); X58.XXXA Exposure to other specified factors, initial encounter ==

== ENCOUNTER → 2024-05-27 | Outpatient (CLI) | payer OTHER | LOC: M RAD 15:23 | PROVIDERS: ATTEND Pain Medicine Interventional Pain Medicine | DX: M54.12 Radiculopathy, cervical region (principal) ==

== ENCOUNTER → 2024-08-29 | Outpatient (CLI) | payer OTHER ==
[~2024-08-29] MED LIST changes: -BUPR1TAB56 PO; +BUPR200T45 PO; +LIDO1ADH93 TD; -LIDO5DIS41 TD
[2024-08-29 15:46] LABS: BASO # 0.1 10^3/uL (0.0-0.2); BASO % 0.8 % (0.0-1.0); EOS # 0.1 10^3/uL (0.0-0.5); EOS % 0.9 % (0.0-3.0); HEMATOCRIT 42.6 % (36.0-47.0); LYMPH # 2.1 10^3/uL (1.5-5.0); LYMPH % 24.2 % (24.0-44.0); MEAN CORPUSCULAR HEMOGLOBIN 29.1 pg (27.0-33.0); MEAN CORPUSCULAR HGB CONC 32.9 g/dl (32.0-36.5); MEAN CORPUSCULAR VOLUME 88.6 fl (80.0-96.0); MONO # 0.5 10^3/uL (0.0-0.8); MONO % 5.7 % (2.0-8.0); NEUTROPHILS # 5.9 10^3/uL (1.5-8.5); NEUTROPHILS % 68.1 % (36.0-66.0); PLATELET COUNT, AUTOMATED 213 10^3/uL (150-450); RED BLOOD COUNT 4.81 10^6/uL (4.00-5.40); WHITE BLOOD COUNT 8.6 10^3/uL (4.0-10.0)
[2024-08-29 16:00] LABS: ALBUMIN 3.8 G/DL (3.2-5.2); BILIRUBIN,TOTAL 0.5 MG/DL (0.3-1.2); CALCIUM LEVEL 9.4 MG/DL (8.3-10.6); CREATININE FOR GFR 0.99 MG/DL (0.55-1.30); GLOMERULAR FILTRATION RATE 64.9 (>45); MAGNESIUM LEVEL 1.8 MG/DL (1.8-2.4); POTASSIUM SERUM 4.2 MMOL/L (3.5-5.1); TOTAL PROTEIN 6.3 G/DL (5.7-8.2)
[2024-08-29 16:01] LABS: THYROID STIMULATING HORMONE 0.994 uIU/ML (0.55-4.78)
== END ==
LOC: M LAB 15:04
PROVIDERS: ATTEND Family Medicine
DX: M54.12 Radiculopathy, cervical region (principal)